=== PATIENT | male | born 1965 | race Caucasian/White ===

== ENCOUNTER → 2017-02-09 | Outpatient (CLI) | payer BC ==
[~2017-02-09] MED LIST: IBUP-1050 PO
== END | disposition home or self-care (01) ==
LOC: C.PATHSPEC 16:34
PROVIDERS: ATTEND Dermatology
DX: L82.1 Other seborrheic keratosis (principal)

== ENCOUNTER 2022-03-13 08:11 | Observation (INO) ==
--- NOTE | 2022-03-11 12:59 | Anesthesiology Consultation ---
Date of Service March 11, 2022 Assessment & Plan (1) Encounter for pre-operative examination: Plan - check CBC with diff STAT am DOS. - Case discussed with Dr. Tovar who advised pt is acceptable to proceed and does not need anything further other than planned am DOS CBC with diff from his standpoint. - COVID screening: Per scooter mechanic on 03/11/2022: Travel screen negative, no known COVID-19 positive contacts or current COVID-19 related symptoms in past 2 weeks. To surgeon's discretion if preop COVID testing is needed. Chart Review Chart Review: Acceptable Risk for Surgery and Patient NOT seen in Pre Admission Testing History Surgery Operation Date: 03/13/22 09:55 Proposed Procedures p Transurethral Resection Prostate - Sarbjit Ruiz MD Height/Weight Height: 6 ft 1.5 in Weight: 104.326 kg Allergies Allergy/AdvReac Type Severity Reaction Status Date / Time atorvastatin AdvReac Intermediate elevated Verified 03/11/22 08:34 liver enzymes rosuvastatin [From Crestor] AdvReac Mild Muscle Pain Verified 03/11/22 08:34 simvastatin AdvReac Mild myalgisa Verified 03/11/22 08:34 Medications Home Medications Medication Instructions Recorded Confirmed Last Taken levetiracetam 750 mg tablet 1,500 mg PO BID seizure 09/01/21 03/11/22 Unknown (Keevelinra) prednisone 5 mg tablet 5 mg PO BID #60 tabs 02/24/22 03/11/22 Unknown losartan 50 mg tablet 50 mg PO QAM 03/11/22 03/11/22 Unknown omeprazole 20 mg capsule,delayed 20 mg PO HS 03/11/22 03/11/22 Unknown release Past Medical History Medical History Brain metastases believed to have caused the seizure in august 2021 Cellulitis and abscess of face hx - no recent issues GERD (gastroesophageal reflux disease) History of recent chemotherapy last treatment 03/02/22. 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 receiving chemotherapy treatment, last treatment of chemotherapy 03/02/22. metastatic to various bones (ribs/ankle/spine) Seizure disorder first seizure August 26, 2021 (newly diagnosed at that time). (during an MRI - grand-mal seizures) follows with [facility] Neurology ([facility]) Statin intolerance Past Family History Family History Father Cancer Mother Cancer Brother Colonic polyp Grandfather Myocardial infarction Uncle Myocardial infarction Other Coronary heart disease No family history of adverse response to anesthesia Denies family history of Ovarian cancer Prostate cancer Breast cancer Congenital kidney disease Colorectal cancer Past Surgical History Surgical History History of arthroscopy of knee left? History of colonoscopy History of cystoscopy History of infusaport central venous catheter insertion History of orthopedic surgery distal reinsertion of rupture biceps tendon Social History Smoking Status: Never smoker Do You Dip or Chew Tobacco: No Hx Alcohol Use: Yes Alcohol type: beer alcohol intake frequency: a few times a month Hx Substance Use: Yes substance use type: marijuana Last Used Substance Other:: 03/10/22 Lab Results Anesthesia Preop Results Results Anesthesia Widget: WBC 4.85 K/ul (4.8-10.8) 03/11/22 Hgb 11.5 g/dl (14.0-18.0) L 03/11/22 Hct 36.5 % (40.1-51.0) L 03/11/22 Plt 225 K/uL (130-400) 03/11/22 Na 138 mmol/L (136-145) 03/11/22 K 3.9 mmol/L (3.5-5.1) 03/11/22 Cl 106 mmol/L (98-107) 03/11/22 CO2 24 mmol/L (21-32) 03/11/22 BUN 16 mg/dl (6-23) 03/11/22 Creat 0.88 mg/dl (0.6-1.4) 03/11/22 Glucose Level 105 mg/dl (70-99(Fasting)) H 03/11/22 HA1c 6.0 % (4.5-5.6) H 03/11/22 Urine Color Yellow 03/11/22 Urine Appearance Clear (Clear) 03/11/22 Urine pH 6.5 (4.5-7.5) 03/11/22 Urine Specific Molt 1.016 (1.000-1.030) 03/11/22 Urine Protein 1+ (Negative) H 03/11/22 Urine Glucose (UA) Negative (Negative) 03/11/22 Urine Ketones Negative (Negative) 03/11/22 Urine Blood Negative (Negative) 03/11/22 Urine Nitrite Negative (Negative) 03/11/22 Urine Bilirubin Negative (Negative) 03/11/22 Urine Urobilinogen Negative (Negative) 03/11/22 Urine Leukocyte Esterase Negative (Negative) 03/11/22 Urine WBC (Auto) 1-5 /hpf (0-5) 03/11/22 Urine RBC (Auto) 0-4 /hpf (0-4) 03/11/22 Urine Hyaline Casts (Auto) 1-5 /lpf (0-5) 03/11/22 Urine Epithelial Cells (Auto) 20-30 /lpf (0-5) H 03/11/22 Urine Bacteria (Auto) Negative (Negative) 03/11/22 Testing Electrocardiogram Date: 03/11/22 NSR, rate 62 bpm Chest X-Ray Date: 03/11/22 PA and lateral chest radiographs are compared to study dated 09/06/2012 and correlated with chest CT dated 12/17/2021. A right internal jugular central venous infusion port is new from previous. The cardiomediastinal silhouette is unremarkable. The lungs and pleural spaces are clear. There is no pneumothorax. The bony thorax appears intact. Small sclerotic foci within bilateral ribs and the thoracic spine correspond to known osseous metastatic disease. IMPRESSION: 1. The lungs are clear. 2. Multifocal osseous metastatic disease is again noted. Other Testing CT chest, abdomen and pelvis 12/17/21 No new or progressive abdominal or pelvic soft tissue metastasis Larger 14 mm sclerotic lesion in the left iliac bone, the remaining widespread osteoblastic metastasis in the abdomen and pelvis is unchanged
[~2022-03-13 08:11] MED LIST changes: +CIPROFLOXACIN / D5W 400 MG/200 ML BAG IV SCH; -IBUP-1050 PO; +LR 15ML/HR IV SCH
[2022-03-13 08:43] LABS: Basophils # (auto) 0.03 K/uL (0-0.2); Basophils % (auto) 0.5 %; Eosinophils # (auto) 0.03 K/uL (0-0.50); Eosinophils % (auto) 0.5 %; Hematocrit (blood only) 34.4 % (40.1-51.0); Hemoglobin 11.4 g/dl (14.0-18.0); Immature Granulocytes # (auto) 0.09 K/uL (0.00-0.02); Immature Granulocytes % (auto) 1.6 %; Lymphocytes # (auto) 1.87 K/uL (1.2-3.4); Lymphocytes % (auto) 33.1 %; Mean Corpuscular Hemoglobin 32.6 pg (25.0-34.0); Mean Corpuscular Hgb Conc 33.1 g/dL (32.0-36.0); Mean Corpuscular Volume 98.3 fL (80.0-100.0); Monocytes # (auto) 0.48 K/uL (0.24-0.82); Monocytes % (auto) 8.5 %; Neutrophils # (auto) 3.15 K/uL (1.4-6.5); Neutrophils % (auto) 55.8 %; Platelet Count 254 K/uL (130-400); RDW Coefficient of Variation 13.9 % (11.5-14.5); White Blood Count 5.65 K/ul (4.8-10.8)
--- NOTE | 2022-03-13 10:08 | History & Physical Bridge Note ---
Date of Service March 13, 2022 History & Physical Bridge Note I have examined the patient, reviewed the History & Physical and in the interval since the performance of the History & Physical I have noted the following changes of clinical significance: no changes noted
[2022-03-13] MEDS ORDERED: LIDOCAINE 2% MPF LOCAL 5 ML VIAL INFIL ONE (10:32)
[2022-03-13] MEDS ORDERED: PROPOFOL IV EMULSION 10 MG/ML 20 ML VIAL IV ONE (10:32)
[2022-03-13] MEDS ORDERED: fentaNYL citrate 100 MCG/2 ML VIAL ONE ×3 (10:32→12:11)
[2022-03-13] MEDS ORDERED: MIDAZOLAM HCL 1 MG/ML 2ML VIAL ONE (10:39)
[2022-03-13] MEDS ORDERED: ATROPINE SULFATE 0.1 MG/ML 10ML SYR IV PRN (10:49)
[2022-03-13] MEDS ORDERED: LABETALOL HCL IV 5 MG/ML 20ML IV PRN (10:49)
[2022-03-13] MEDS ORDERED: NALOXONE HCL 0.4 MG/1 ML VIAL/CARP IV PRN (10:49)
[2022-03-13] MEDS ORDERED: ePHEDrine sulfate 50 MG/ML AMP IV PRN (10:49)
[2022-03-13] MEDS ORDERED: PROMETHAZINE HCL 12.5 MG in SODIUM CHLORIDE 0.9% 50 ML IV PRN (10:49)
[2022-03-13] MEDS ORDERED: FLUMAZENIL 0.1 MG/1 ML 10 ML VIAL IV PRN (10:49)
[2022-03-13] MEDS ORDERED: ONDANSETRON INJ 2 MG/ML 2 ML VIAL IV PRN (10:49)
[2022-03-13] MEDS ORDERED: ONDANSETRON INJ 2 MG/ML 2 ML VIAL ONE (11:39)
[2022-03-13] MEDS ORDERED: ESMOLOL HCL INJ 10 MG/ML 10ML VIAL IV ONE (12:14)
--- NOTE | 2022-03-13 12:31 | Operative Report ---
PG Post Operative Report Pre & Post Diagnosis Operation Date: 03/13/22 09:55 Pre-Op Diagnosis: Metastatic prostate cancer with severe local symptoms Post-Op Diagnosis: Metastatic prostate cancer with severe local symptoms I identified the patient and participated in the time-out.: Yes Procedure Operation Date: 03/13/22 09:55 Actual Procedures p Transurethral Resection Prostate(Not Applicable) - Sarbjit Ruiz MD Surgeon Sarbjit Ruiz MD Asbestos Hazard Abatement Worker none Estimated Blood Loss 5 Findings Consistent with Post-Op Diagnosis Specimens none Description of Procedure 56-year-old gentleman who unfortunately has metastatic prostate cancer and urinary retention Presents today for TURP to try to improve his symptoms. To begin the case I passed a 26 Indian resectoscope with 30 degree lens and visual obturator. His urethra was healthy as sphincter is intact his prostate is grossly abnormal with protuberance from the right lateral lobe and in a symmetric fashion. This is irregular appearing tissue most consistent with prostate cancer. It does protrude into the bladder, particular from the anteriormost aspect of the prostate. Following my inspection of the bladder and confirmation of the locations of the ureteral orifices, I turned my attention back to the prostate and begin resecting it using a button electrode. I resected the visible abnormal tissue and smooth the right lateral lobe until it was symmetrical in size and shape with the left. The majority of the posterior wall of the prostate was also abnormal in appearance and this was also smooth. I trimmed the apical tissue including the intravesical component. I obtained meticulous hemostasis after feeling that the prostatic urethra was adequately opened. A 22 Indian catheter was inserted and the case was concluded. There were no complications. I attest to the content of the Intraoperative Record and any orders documented therein. Any exceptions are noted below.
[2022-03-13] MEDS: fentaNYL citrate 100 MCG/2 ML VIAL IV PRN ×3 (12:34→12:44)
--- NOTE | 2022-03-13 13:10 | Anesthesiology Progress Note ---
Date of Service March 13, 2022 Anesthesia Post Procedure Vital Signs Vital Signs: Temp Pulse Pulse Resp BP Pulse Ox O2 Del Method 03/13/22 13:05 64 13 117/86 100 Nasal Cannula 03/13/22 12:55 36 C L 67 12 127/89 99 Nasal Cannula 03/13/22 12:45 71 12 134/83 95 Room Air 03/13/22 12:35 75 13 135/11 L 99 Oxymask 03/13/22 12:27 36.1 C L 101 H 21 145/96 H 100 Oxymask 03/13/22 11:25 65 20 129/81 100 Oxymask 03/13/22 11:15 62 20 119/90 100 Oxymask 03/13/22 11:05 63 14 127/80 100 Oxymask 03/13/22 10:55 64 14 116/76 100 Oxymask 03/13/22 10:45 64 22 123/85 100 Oxymask 03/13/22 10:27 66 20 136/85 97 Room Air 03/13/22 08:37 36.6 C 74 20 139/88 98 Room Air O2 Flow Rate 03/13/22 13:05 2 03/13/22 12:55 2 03/13/22 12:45 03/13/22 12:35 9 03/13/22 12:27 9 03/13/22 11:25 5 03/13/22 11:15 5 03/13/22 11:05 5 03/13/22 10:55 5 03/13/22 10:45 5 03/13/22 10:27 03/13/22 08:37 Pain Intensity Penis: Pain Intensity: 4 Transfer of Care Handoff Completed per policy Notes Mental Status: alert / awake / arousable Patient Amnestic to Procedure: Yes Nausea / Vomiting: adequately controlled Pain: adequately controlled Airway Patency, RR, SpO2: stable & adequate BP & HR: stable & adequate Hydration State: stable & adequate Anesthetic Complications: no major complications apparent
[2022-03-13] MEDS ORDERED: oxyCODONE/ACETAMINOPHEN 5mg/325mg TAB PO PRN (13:25)
[2022-03-13] MEDS ORDERED: ACETAMINOPHEN 325 MG TAB PO PRN (13:25)
[2022-03-13] MEDS: traMADol HCL 50 MG TABLET PO PRN ×2 (14:09→20:26)
[2022-03-13] MEDS: LACTATED RINGER'S 1,000 ML IV SCH (14:11)
[2022-03-13] MEDS: predniSONE 5 MG TAB PO SCH (18:45)
[2022-03-13] MEDS: levETIRAcetam 500 MG TAB PO SCH (20:22)
[2022-03-13] MEDS ORDERED: PANTOprazole 40 MG TAB PO SCH (21:00)
[2022-03-13] MEDS: CIPROFLOXACIN / D5W 400 MG/200 ML BAG IV SCH (23:23)
[2022-03-14 05:47] LABS: Basophils # (auto) 0.02 K/uL (0-0.2); Basophils % (auto) 0.3 %; Eosinophils # (auto) 0.03 K/uL (0-0.50); Eosinophils % (auto) 0.5 %; Hemoglobin 10.3 g/dl (14.0-18.0); Immature Granulocytes % (auto) 1.6 %; Lymphocytes % (auto) 22.2 %; Mean Corpuscular Hemoglobin 32.3 pg (25.0-34.0); Mean Corpuscular Hgb Conc 32.2 g/dL (32.0-36.0); Mean Corpuscular Volume 100.3 fL (80.0-100.0); Mean Platelet Volume 8.9 fL (9.4-12.4); Monocytes # (auto) 0.67 K/uL (0.24-0.82); Monocytes % (auto) 10.6 %; Neutrophils # (auto) 4.09 K/uL (1.4-6.5); Neutrophils % (auto) 64.8 %; Platelet Count 217 K/uL (130-400); RDW Coefficient of Variation 13.9 % (11.5-14.5); RDW Standard Deviation 51.4 fL (36.4-46.3); Red Blood Count 3.19 M/uL (4.63-6.08); White Blood Count 6.31 K/ul (4.8-10.8)
[2022-03-14 06:19] LABS: BUN Creatinine Ratio 14.6 (10-20); Calcium 8.3 mg/dl (8.5-10.1); Creatinine Clr Calc Pharmacy 119.4 ml/min; Est GFR (African American) 111.6 ml/min; Est GFR (Non-African American) 96.3 ml/min; Potassium 4.2 mmol/L (3.5-5.1)
[2022-03-14] MEDS: LACTATED RINGER'S 1,000 ML IV SCH (06:24)
[2022-03-14] MEDS: predniSONE 5 MG TAB PO SCH (07:02)
[2022-03-14] MEDS: levETIRAcetam 500 MG TAB PO SCH (07:55)
[2022-03-14] MEDS ORDERED: LOSARTAN POTASSIUM 50 MG TAB PO SCH (09:00)
--- NOTE | 2022-03-14 09:28 | Urology Progress Note ---
Date of Service March 14, 2022 Assessment & Plan (1) Incomplete emptying of bladder: Plan: Doing well s/p TURP on 03/13. Ready for voiding trial this morning. Assuming he passes, he should be good to go home without a Forman catheter. Admission and Anticipated Discharge Date Admission Date: March 13, 2022 Subjective S/p TURP on 03/13/2022. Tolerating a diet Minimal pain Has been ambulating No issues with catheter overnight. Physical Exam Physical Exam: Well-appearing, NAD Genitourinary: Forman catheter draining clear yellow urine, no CBI Results & Data ([facility]) Vital Signs (Past 12 Hours) Vital Signs Temp Pulse Resp BP Pulse Ox O2 Del Method 03/14/22 07:54 36.8 C 74 20 114/75 98 03/14/22 03:08 36.7 C 67 16 123/75 96 Room Air 03/13/22 23:02 36.8 C 62 14 120/76 96 Room Air PG Care Time/CCT Total # of Minutes Spent Total Time Spent with Patient: Total time spent is greater than 50% in coordination of care (as documented) at patient's floor/unit and/or counseling patient: Coding Level of Care Code None Diagnoses Incomplete emptying of bladder R33.9
--- NOTE | 2022-03-14 09:41 | Discharge Summary ---
Date of Service March 14, 2022 Admission HPI Per Admitting Provider This is a 56-year-old followed by urology for incomplete bladder emptying. He underwent TURP on 03/13/2022 and was admitted postoperatively in good condition. Admission Exam Per Admitting Provider Constitutional well developed and well nourished Neck neck nontender Respiratory normal respiratory effort; no respiratory distress and does not use accessory muscles Cardiovascular Rate/Rhythm: regular rate Vessels: radial pulses present Extremities: no edema Gastrointestinal (Abdomen) Inspection/Auscultation: abdomen normal to inspection Percussion/Palpation: abdomen soft; abdomen nontender and no guarding Musculoskeletal Head/Neck/Chest: normocephalic and head atraumatic Extremities: extremities normal to inspection Skin no rashes and no lesions Trauma: no evidence of skin trauma Neurologic awake; not obtunded Speech / Cognition: normal speech Motor/Sensory: no tremor Psychiatric Orientation: alert and oriented x 3 Genitourinary no CVA tenderness Lymphatic no lymphadenopathy Principal Diagnosis Incomplete bladder emptying Discharge Exam Well-appearing, NAD Genitourinary Forman catheter in place, draining clear yellow urine. Discharge Data Allergies Allergy/AdvReac Type Severity Reaction Status Date / Time atorvastatin AdvReac Intermediate elevated Verified 03/13/22 08:34 liver enzymes rosuvastatin [From Crestor] AdvReac Mild Muscle Pain Verified 03/13/22 08:34 simvastatin AdvReac Mild myalgisa Verified 03/13/22 08:34 Procedures Performed Operation Date: 03/13/22 09:55 Actual Procedures p Transurethral Resection Prostate(Not Applicable) - Sarbjit Ruiz MD s Cystoscopy(Not Applicable) - Sarbjit Ruiz MD Hospital Course (1) BPH loc w urin obs/LUTS: Patient underwent TURP on 03/13/2022 and was admitted in good condition postoperatively. He was monitored overnight and had no issues with drainage from the catheter. The Forman was removed on 03/14 for voiding trial. He was discharged home in good condition. Total Time Total Time Spent Total Time Spent (In Minutes): 15 Discharge Plan Discharge Items Patient Disposition: Home - Self-Care Reason For Visit: Incomplete Emptying Bladder, Prostate Cancer Metas Discharge Diagnosis: Incomplete bladder emptying Activity: Per Instructions section Non-emergency contact: Urologist Call non-emergency contact if: your pain is not controlled and your temperature is above 101 Follow-up/Referrals: Alanis,Christopher E., MD [Primary Care Provider] - Diet: Regular Addtl Attending Provider Instructions: The surgery you had was TURP (Trans-urethral resection of the prostate) Please take all medications as prescribed and keep all follow-ups as scheduled. Please call our office at [phone] with any questions, concerns or need to reschedule appointments for any reason. We are happy to assist you. Medications: -Please resume your normal medications as previously prescribed. -Take a stool softener such as colace or Miralax to keep your stool soft. The goal is one soft bowel movement daily. -For pain, it is ok to take tylenol. You can also try pyridium (also known as AZO). This can be gotten [id number]. It turns your urine a bright orange color. -You have been prescribed an antibiotic (Bactrim). Please take this twice daily for the next 5 days. Activity: -Avoid straining or bearing down for the next 1-2 weeks. This can cause or increase bleeding. Avoiding straining to have bowel movements. -If you notice blood in your urine, try to remain well-hydrated to keep the urine dilute. -For the next 2 weeks, avoid activities that put pressure on your perineum (area behind the scrotum), such as riding a bike. What to expect after your procedure: -You may notice some blood in your urine. As long as you can empty your bladder, this is ok. -You may have increased urinary frequency and urgency; this should improve with time. -You may notice some urinary leaking, especially with coughing/sneezing/bearing down. This should improve with time. When to call [facility] at [phone]: Fever of 101F or higher Heavy bleeding Pain that is not controlled with medicine Uncontrolled vomiting Problems urinating or inability to urinate Our office will call to schedule an appointment for follow-up Pending Studies at Discharge: No Stand-Alone Forms: My [employer], Smoking Cessation Medications and DC Order Prescriptions: New sulfamethoxazole-trimethoprim [Bactrim DS] 800-160 mg tablet 1 tab PO BID 5 Days Qty: 10 0RF Continued prednisone 5 mg tablet 5 mg PO BID Qty: 60 0RF levetiracetam [Keppra] 750 mg tablet 1,500 mg PO BID Rx Instructions: Take 1500 mg PO BID for now as recommended by Neurologist. losartan 50 mg tablet 50 mg PO QAM omeprazole 20 mg capsule,delayed release(DR/EC) 20 mg PO HS Discharge Orders: Discharge Order (Routine); Ordered 03/14/22 Ordered By: Jason Dunn Admission Data Admit Date/Time: 03/13/22 12:27 Attending Provider: Sarbjit Ruiz Admit Provider: Sarbjit Ruiz Primary Care Provider: Sarbjit Alanis Coding Level of Care Code D/C DAY MANAGEMENT <30 MINS Diagnoses BPH loc w urin obs/LUTS N40.1 Time Spent (min) 15
[2022-03-14] MEDS: CIPROFLOXACIN / D5W 400 MG/200 ML BAG IV SCH (10:18)
== END 2022-03-14 12:33 | disposition home or self-care (01) ==
LOC: ASU 08:11 → 3E 08:11